=== PATIENT | male | born 1935 | race African-American/Black ===

== ENCOUNTER 2020-10-14 15:05 | Emergency (ER) | payer MEDICARE, BC ==
[~2020-10-14] VITALS: Ht 172.7 cm; Wt 79.0 kg
[2020-10-14 15:06] VITALS: BP 160/80
[2020-10-14 18:01] LABS: BASOPHILS % 0.3 % (0.0-2.0); EOSINOPHILS % 1.6 % (0.0-5.0); HEMATOCRIT. 39.7 % (42.0-52.0); HEMOGLOBIN. 13.6 g/dL (14.0-18.0); LYMPHOCYTES % 15.6 % (20.0-50.0); MEAN CORPUSCULAR HEMOGLOBIN 31.5 pg (28.0-32.0); MEAN CORPUSCULAR VOLUME 91.8 fL (80.0-94.0); MEAN PLATELET VOLUME 7.8 fl (7.4-10.4); MONOCYTES % 10.5 % (2.0-8.0); PLATELET 180 x1000/uL (130-400); RED BLOOD CELL COUNT 4.32 mill/uL (4.7-6.1); RED CELL DISTRIBUTION WIDTH 14.2 % (11.6-14.6)
[2020-10-14 18:08] LABS: CHLORIDE 109 mEq/L (98-107)
[2020-10-14 18:10] LABS: PROTHROMBIN TIME 10.6 sec (9.6-11.0)
[2020-10-14] MEDS ORDERED: CEPH500C2 MT (19:20)
== END 2020-10-14 19:27 | disposition home or self-care (01) ==
LOC: ER 15:05
DX: S02.40DA Maxillary fracture, left side, initial encounter for closed fracture (principal); W18.39XA Other fall on same level, initial encounter; Y93.89 Activity, other specified; Y92.89 Other specified places as the place of occurrence of the external cause; Y99.8 Other external cause status; Z98.890 Other specified postprocedural states
CPT/HCPCS: 36415; 70486; 80053; 85025; 93005; 99285